=== PATIENT | male | born 1965 | race Caucasian/White ===

== ENCOUNTER 2020-04-28 01:04 | Outpatient (CLI) | payer BC, SELFPAY ==
[2020-04-28 19:20] LABS: SARS-CoV-2 RNA PCR Negative
== END 2020-04-28 01:05 | disposition home or self-care (01) ==
LOC: ANHCOVIDDT 01:04
PROVIDERS: PCP Family Medicine; Visit Provider Internal Medicine Gastroenterology
DX: Z01.812 Encounter for preprocedural laboratory examination (principal); Z11.59 Encounter for screening for other viral diseases
CPT/HCPCS: 87635; C9803; U0003

== ENCOUNTER 2020-04-30 02:29 | Day surgery (SDC) | payer BC, SELFPAY ==
[2020-04-23 16:01] VITALS: BMI 22.8
[2020-04-30 06:50] VITALS: BP 97/68; PULSE 87; RESP 16; TEMP 36.4; O2SAT 98; BMI 22.8
--- NOTE | 2020-04-30 06:53 | WPDANESEPPF ---
Anes - Initial Pre Proc Eval Procedure: Operation Date: 04/30/20 08:00 Proposed Procedures p Screening Colonoscopy - Mayo Gorman MD Date/Time: 04/30/20 06:53 Surgeon: Mayo Gorman MD Pre Op Diagnosis: Neoplasm Screening Patient Data Age: 54 Gender: M Height: 1.73 m Weight: 68.1 kg Last Vital Signs Temp 36.4 C L 04/30/20 06:50 Pulse 87 04/30/20 06:50 Resp 16 04/30/20 06:50 BP 97/68 L 04/30/20 06:50 Pulse Ox 98 04/30/20 06:50 Allergies Allergy/AdvReac Type Severity Reaction Status Date / Time Penicillins Allergy Severe Anaphylaxis Verified 04/23/20 16:01 Sulfa (Sulfonamide Allergy Severe ANAPHYLAXIS Unverified 04/23/20 16:01 Antibiotics) sulfanilamide Allergy Severe Anaphylaxis Verified 04/23/20 16:01 BEE STINGS Allergy Intermediate Swelling Uncoded 04/23/20 16:01 Home Medications Medication Instructions Recorded Confirmed Type amlodipine-benazepril 1 cap PO DAILY 04/23/20 04/30/20 History aspirin [Aspir-81] 81 mg PO DAILY 04/23/20 04/30/20 History insulin degludec [Tresiba 18 unit SUBCUT DIRECTED 04/23/20 04/30/20 History FlexTouch U-200] levothyroxine 75 mcg PO DAILY 04/23/20 04/30/20 History pravastatin 20 mg PO DAILY 04/23/20 04/30/20 History Patient hx anesthesia problems: none Family hx anesthesia problems: none [facility] Past Medical History Medical History (Updated 04/30/20 @ 06:54 by Mina Leiva MD) Arthritis Diabetes Gastroesophageal reflux disease HTN (hypertension) Hypercholesterolemia Hypothyroidism Family History Family History (Updated 01/05/13 @ 09:39 by DOCTOR UNKNOWN) Other Depression Diabetes mellitus Family history of coronary artery disease Family history of migraine headaches Family history of thyroid disease Hypertension Social History Social History Smoking status: Never smoker Alcohol intake: current Anes - Eval Final PreProcedure Day of Procedure 04/30/20 06:53 Patient weight: normal Heart: regular rate and rhythm Lungs: clear to auscultation and normal air movement Airway: Mallampati scale class II Neurological: alert and oriented Last oral intake: >/= 8 hours ASA classification: III Emergent: no Anesthetic plan: proceed Anesthesia type and monitoring: general GIVS Informed Consent: The patient's anesthetic plan and its attendant risks and benefits were discussed with the patient/family/POA. Questions were solicited and answers provided to the satisfaction of the patient/family/POA.
[2020-04-30] MEDS: LACTATED RINGERS 1,000 ML 150 ML IV CONT (06:59)
[2020-04-30 07:15] LABS: Glucose Point of Care 204 (65-105)
--- NOTE | 2020-04-30 07:56 | WPDGICN ---
Assessment and Plan Assessment and plan (1) Encounter for screening for colorectal malignant neoplasm: Code(s): Z12.11 - Encounter for screening for malignant neoplasm of colon; Z12.12 - Encounter for screening for malignant neoplasm of rectum Status: Acute Assessment and Plan: Plan is for screening colonoscopy. Further recommendations will be given after endoscopy. Patient has never had an endoscopy before. (2) Constipation: Code(s): K59.00 - Constipation, unspecified Status: Acute Assessment and Plan: Because of patient's constipation would advise MiraLax 17 g p.o. daily as needed for his constipation. He is encouraged to remain hydrated. He had exercise may be of some benefit. (3) Diabetes: Code(s): E11.9 - Type 2 diabetes mellitus without complications Status: Acute GI Consult Note Consult date/time: 04/30/20 07:56 HPI: Rayo Hilario is a 54 year old male Seen in evaluation at the request of Dr. Lane Valle. Patient presents for neoplasia screening colonoscopy. Patient's current weight is normally states his appetite is diminished somewhat. He recently lost 90 lb with intentional weight loss and diet and exercise. He does report occasional constipation. He attributes this to his new diet. He denies any bleeding. He denies abdominal pain. Family history is noncontributory. Review of Systems Review of Systems: All systems reviewed & are unremarkable except as noted in HPI and below PMFSH Past Medical History Medical History Arthritis Diabetes Gastroesophageal reflux disease HTN (hypertension) Hypercholesterolemia Hypothyroidism Family History Family History Other Depression Diabetes mellitus Family history of coronary artery disease Family history of migraine headaches Family history of thyroid disease Hypertension Social History Social History Smoking status: Never smoker Alcohol intake: current Meds Home Medications and Allergies Home Medications Medication Instructions Recorded Confirmed Type amlodipine-benazepril 1 cap PO DAILY 04/23/20 04/30/20 History aspirin [Aspir-81] 81 mg PO DAILY 04/23/20 04/30/20 History insulin degludec [Tresiba 18 unit SUBCUT DIRECTED 04/23/20 04/30/20 History FlexTouch U-200] levothyroxine 75 mcg PO DAILY 04/23/20 04/30/20 History pravastatin 20 mg PO DAILY 04/23/20 04/30/20 History Allergies Allergy/AdvReac Type Severity Reaction Status Date / Time Penicillins Allergy Severe Anaphylaxis Verified 04/23/20 16:01 Sulfa (Sulfonamide Allergy Severe ANAPHYLAXIS Unverified 04/23/20 16:01 Antibiotics) sulfanilamide Allergy Severe Anaphylaxis Verified 04/23/20 16:01 BEE STINGS Allergy Intermediate Swelling Uncoded 04/23/20 16:01 Vital Signs Vital Signs - 24 hr 04/30/20 06:50 Temperature 97.5 F L Pulse Rate 87 Respiratory Rate 16 Blood Pressure 97/68 L Pulse Oximetry 98 Exam Narrative: Exam Narrative: Physical exam reveals patient to be alert. Vital signs stable. HEENT exam unremarkable. Lungs are clear to auscultation and percussion. Heart is without murmur or extra sounds. Abdominal exam bowel sounds are present soft nontender with no hepatosplenomegaly. Digital external rectal exam normal.
[2020-04-30 09:46] VITALS: BP 99/67; PULSE 66; RESP 18; O2SAT 99
[2020-04-30 09:56] VITALS: BP 137/88; PULSE 75; RESP 15; O2SAT 100
[2020-04-30 10:06] VITALS: BP 138/91; PULSE 72; RESP 19; O2SAT 100
== END 2020-04-30 10:26 | disposition home or self-care (01) ==
PROVIDERS: PCP Physician Assistant; Visit Provider Internal Medicine Gastroenterology
PROC: 0DJD8ZZ Inspection of Lower Intestinal Tract, Via Natural or Artificial Opening Endoscopic (ICD-10-PCS; CPT 45378; principal; 2020-04-30 08:00)
DX: Z12.11 Encounter for screening for malignant neoplasm of colon (principal); K64.8 Other hemorrhoids; K59.00 Constipation, unspecified; E11.9 Type 2 diabetes mellitus without complications; I10 Essential (primary) hypertension; E78.00 Pure hypercholesterolemia, unspecified; K21.9 Gastro-esophageal reflux disease without esophagitis; E03.9 Hypothyroidism, unspecified; Z79.4 Long term (current) use of insulin; Z79.82 Long term (current) use of aspirin
CPT/HCPCS: 45378; J2704; J7120

== ENCOUNTER 2020-07-15 04:16 | Observation (INO) | payer BC, SELFPAY ==
[2020-07-15] VITALS (18 sets, daily range): BP systolic 132–199; BP diastolic 81–108; PULSE 70–87; RESP 15–22; TEMP 36.2–36.8; O2SAT 96–100; BMI 23.1
--- NOTE | ~2020-07-15 | MR_ITS ---
EXAMINATION: MR brain/brain stem wo/w con EXAM DATE: 07/15/2020 14:17 INDICATION: Left-sided hearing loss, dizziness. TECHNIQUE: Multi-sequential, multiplanar MR images of the brain, brainstem, internal auditory canals were obtained without contrast. Whole brain sagittal T1, axial diffusion, gradient echo (T2*), T1, T 2, FLAIR sequences obtained. High resolution coronal 3-D FIESTA, coronal T1 FSE, axial T1 FSPGR of t he internal auditory canals. Patient was then injected with 13 cc Multihance contrast intravenously. Postcontrast axial and coronal T1 weighted whole brain, axial and coronal high resolution T1 IAC seq uences obtained. There is no prior study for comparison. FINDINGS: No evidence of mastoid or middle ear opacification. The 7th/8th cranial nerve complexes a re symmetric, normal in course and caliber. No cerebellopontine angle masses. Posterior fossa unrem arkable. . There are no areas of restricted diffusion to suggest acute infarction. There is no acute hemorrha ge seen on the T2*, a hemosiderin sensitive sequence. No intraparenchymal brain mass. The ventricles are normal in size. There are no extra-axial collections. Flow voids are seen in the cerebral paul patsy on the T2-weighted sequences consistent with their expected patency. The orbits are unremarkabl e. Soft tissue is unremarkable. IMPRESSION: 1. Unremarkable brain MRI examination. Reviewed, dictated and finalized at location B.
--- NOTE | ~2020-07-15 | XR_ITS ---
XR chest 1V DATE: 07/15/2020 04:54 INDICATION: Stroke symptoms TECHNIQUE: AP chest COMPARISON: None FINDINGS: Normal heart size. No hilar or mediastinal enlargement. No pulmonary infiltrate or consolid ation, pleural effusion or pulmonary vascular congestion or pneumothorax. IMPRESSION: No active cardiopulmonary disease Reviewed, dictated and finalized at location A.
--- NOTE | ~2020-07-15 | CT_ITS ---
EXAMINATION: CT brain wo con DATE: 07/15/2020 04:57 INDICATION: Dizziness, left hearing loss, left-sided tingling. TECHNIQUE: Computed tomography (CT) of the head was performed without intravenous contrast. The mA wa s adjusted according to patient size. Iterative reconstruction technique was employed. Exam dose: 60 5.33 mGy-cm total exam DLP. COMPARISON: None FINDINGS: No intracranial mass lesion or hemorrhage or cerebrovascular accident is evident. No midlin e shift or mass effects. Normal ventricular size. There is no subdural or epidural hematoma. Included paranasal sinuses are unremarkable. The mastoid air cells are normally aerated. No fracture or bone destruction of the cranial vault. IMPRESSION: No significant abnormality Reviewed, dictated and finalized at [facility]. Reviewed, dictated and finalized at [facility]. IMPRESSION: No significant abnormality
--- NOTE | ~2020-07-15 | CT_ITS ---
EXAMINATION: CTA BRAIN/CAROTID DATE: 07/15/2020 16:07 INDICATION: Stroke with left-sided hearing loss and dizziness TECHNIQUE: Computed tomographic angiography (CTA) of the head and neck was performed with 100 mL Omni paque-350 intravenous contrast. Multiplanar reconstructions and maximum intensity projection 3D-recon structions of the carotid arteries and of the intracranial arteries were created by the technologist on a separate workstation. Automated exposure control and iterative reconstruction technique were emp loyed.The dose-length product was 1133.63 mGy-cm. COMPARISON: None. FINDINGS: Carotid arteries: There is mild atherosclerotic plaque with 0% stenosis of both the left and right carotid bulbs relati ve to normal distal artery lumen diameter (NASCET criteria). Mild atherosclerotic calcification with <50% stenosis on the right cervical vertebral artery. Visualized upper lungs are clear. Soft tissues of the neck and visualized mediastinum are unremarkable. Degenerative disc disease with moderate disc height loss and posterior disc bulge resulting in mild central canal stenosis at C6-C7. To moderate left and severe right facet osteoarthritis at C6-C7. Intracranial arteries Atherosclerotic calcification with near occlusion stenosis along the petrous portion of the right int ernal carotid artery. Additional calcified atherosclerotic plaque with significantly <50% stenosis at the bilateral carotid siphons, minimal on the left. There is no hemodynamically significant stenosis in the vertebral and basilar arteries. Vertebral arteries are codominant. There are no aneurysms naresh ntified. Both A1 and P1 segments are patent. Are also patent bilateral posterior to indicating arter ies. Cerebral arterial arborization appears symmetric. No abnormally enhancing brain lesions. IMPRESSION: 1. 0% stenosis of the left and right carotid bulbs relative to normal distal artery lumen diameter (N ASCET criteria). 2. Isolated calcified atherosclerotic plaque along the mid petrous portion of the right internal doss tid artery with a near occlusion stenosis. Otherwise unremarkable cerebral angiogram. Reviewed, dictated and finalized at [facility]. IMPRESSION: 1. 0% stenosis of the left and right carotid bulbs relative to normal distal ar bartolo lumen diameter (NASCET criteria). 2. Isolated calcified atherosclerotic plaque along the mid petrous portion of t he right internal carotid artery with a near occlusion stenosis. Otherwise unre markable cerebral angiogram.
--- NOTE | 2020-07-15 04:40 | ECG_ITS ---
Measurements Intervals Switchback Rate: 78 P: 64 FL: 188 QRS: 7 QRSD: 85 T: 56 QT: 359 QTc: 409 Interpretive Statements SINUS RHYTHM POSSIBLE LEFT ATRIAL ENLARGEMENT BORDERLINE ECG Electronically Signed On 07-15-2020 6:43:04 CDT by Steven Pardo D.O.
--- NOTE | 2020-07-15 04:56 | PC.NURSE ---
Pt reports his BG is 271
[2020-07-15 05:06] LABS: Glucose Point of Care 270 (65-105)
[2020-07-15 05:25] LABS: Basophils Absolute Auto 0.1 K/mm3 (0.0-0.1); Eosinophils Absolute Auto 0.4 K/mm3 (0-0.3); Eosinophils Percent Auto 5.1 % (0-4.4); Hematocrit 43.7 % (42.0-52.0); Hemoglobin 15.5 g/dL (14.0-18.0); Immature Granulocyte Absolute 0.05 K/mm3 (0.00-0.031); Immature Granulocyte Percent A 0.7 % (0-0.5); Lymphocytes Absolute Auto 1.34 K/mm3 (0.9-3.2); Lymphocytes Percent Auto 18.4 % (18.3-44.2); Mean Corpuscular HGB Conc 35.5 g/dl (32-36); Mean Corpuscular Hemoglobin 30.3 pg (26-34); Mean Corpuscular Volume 85.4 fl (80-100); Mean Platelet Volume 9.6 fl (7.4-10.4); Monocytes Absolute Auto 0.7 K/mm3 (0.1-0.6); Monocytes Percent Auto 9.8 % (2.6-8.5); Neutrophils Absolute Auto 4.7 K/mm3 (1.3-6.7); Platelet Count Result 294 k/mm3 (150-375); Red Blood Count 5.12 M/mm3 (4.6-6.20); Red Cell Distribution Width 11.8 % (11.5-14.5); White Blood Count 7.3 K/mm3 (4.5-10.0)
--- NOTE | 2020-07-15 05:27 | ED.NEUROSD ---
HPI - Neuro Symptoms/Deficit General Chief Complaint: Neuro Symptoms/Deficit Stated Complaint: my ear is muted . Time Seen by Provider: 07/15/20 04:20 History of Present Illness HPI Narrative: Patient is a 54-year-old male who presents the ER with left-sided hearing loss. Patient reports at 1 AM he started hearing ringing in his ear. Over the course of 2 hours it developed into full hearing loss with continued persistent loud ringing in that ear. He also developed tingling over the parietal region of his scalp on that left side and has also developed what he feels like his dizziness. Dizziness is not spinning it is an off-balance feeling. Reports he is unsteady at home. No additional weakness or numbness noted. No previous strokes. Patient does have chronic hearing loss on the left side that he wears a hearing aid for but this is markedly different. Related Data Home Medications Medication Instructions Recorded Confirmed amlodipine-benazepril 1 cap PO DAILY 04/23/20 04/30/20 aspirin [Aspir-81] 81 mg PO DAILY 04/23/20 04/30/20 insulin degludec [Tresiba 18 unit SUBCUT DIRECTED 04/23/20 04/30/20 FlexTouch U-200] levothyroxine 75 mcg PO DAILY 04/23/20 04/30/20 pravastatin 20 mg PO DAILY 04/23/20 04/30/20 Allergies Allergy/AdvReac Type Severity Reaction Status Date / Time Penicillins Allergy Severe Anaphylaxis Verified 07/15/20 04:20 Sulfa (Sulfonamide Allergy Severe ANAPHYLAXIS Verified 07/15/20 04:20 Antibiotics) sulfanilamide Allergy Severe Anaphylaxis Verified 07/15/20 04:20 BEE STINGS Allergy Intermediate Swelling Uncoded 07/15/20 04:20 Review of Systems Review of Systems: All systems reviewed & are unremarkable except as noted in HPI and below Constitutional: Constitutional: Denies chills, Denies fever(s) and Denies weakness Eyes: Eyes: Denies photophobia ENT: Denies nasal congestion and Denies sore throat Comments: Tinnitus in the left ear as well as hearing loss Cardiovascular: Cardiovascular: Denies chest pain and Denies radiating jaw, neck or arm pain Gastrointestinal: Gastrointestinal: Denies abdominal pain, Denies diarrhea, Denies nausea and Denies vomiting Neurologic: Reports dizziness, Denies headache(s), Denies focal weakness and Reports numbness PMFSH Social History Social History Smoking status: Never smoker Alcohol intake: current Exam Narrative: Exam Narrative: GENERAL: Well-appearing, well-nourished, and in no acute distress. HEAD: Normocephalic, atraumatic. EYES: PERRL and EOMI. ENT: Mucous membranes moist. TMs normal bilaterally with ear canals free of cerumen. Patient cannot hear on the left side. Feels as though his left ear is numb however sensation is intact. NECK: Supple. CHEST: Clear to auscultation. No respiratory distress. HEART: Regular rate and rhythm. Normal peripheral pulses. ABDOMEN: Soft, nontender, nondistended. EXTREMITIES: Normal range of motion. No edema. SKIN: Warm, dry, no rash. NEURO: Left-sided hearing loss. No sharp or soft touch deficit noted. No upper or lower extremity drift. Dmia-ud-isab normal. Finger-nose testing normal. Negative Romberg. Patient is able to ambulate a straight line walking and on his tiptoes without falling to one side. No facial droop, dysarthria, or expressive aphasia. Alert and oriented x3. Course Reevaluation(s) Reevaluation #1: Discussed case with Dr. Arreguin with [facility] stroke team. No TPA intervention recommended but does recommend w/u with MRI and carotid dopplers. Will plan admission here. Date: 07/15/20 Time: 05:30 Reevaluation #2: Accepted to hospital service. Will have ENT consulted as well. Date: 07/15/20 Time: 06:00 Vital Signs Vital signs: Vital Signs Temperature 98.0 F 07/15/20 04:21 Pulse Rate 87 07/15/20 04:21 Respiratory Rate 15 07/15/20 04:21 Blood Pressure 132/94 H 07/15/20 04:21 Pulse Oximetry 100 07/15/20 04:21 Temperature
[2020-07-15 05:33] LABS: INR 0.9; Prothrombin Time 12.1 Seconds (11.1-14.7)
[2020-07-15 05:38] LABS: Anion Gap 4 mmol/L (8-16); Blood Urea Nitrogen 12 mg/dL (9-20); Calcium 8.7 mg/dL (8.4-10.2); Carbon Dioxide 34 mmol/L (22-30); Chloride 95 mmol/L (98-107); Estimated Glomerular Filt Rate > 60; Glucose 277 mg/dL (75-110); Potassium 4.3 mmol/L (3.4-5.0); Sodium 133 mmol/L (137-145)
[2020-07-15 05:50] LABS: Troponin I < 0.012 ng/mL (0.000-0.034)
--- NOTE | 2020-07-15 06:41 | ADMGEN ---
This patient, Rayo Hilario, was admitted to [facility] Surg Room 315-01. Patient/family oriented to hospital policies and general routines including ID bracelet, bed and alarms, visiting hours, pain management, procedures, bathroom and other care routines, personal items, smoking policy, room service/diet, and visiting hours. Valuables list has been completed. Information on how to activate the Rapid Response Team has been discussed. Patient/Family are encouraged to report perceived risks to care and to ask questions if they do not understand what they are told or what they should do.
[2020-07-15] MEDS: PROMETHAZINE HCL 25 MG/ML AMPUL 12.5 MG IV PUSH (07:50)
[2020-07-15 08:57] LABS: Basophils Absolute Auto 0.1 K/mm3 (0.0-0.1); Eosinophils Absolute Auto 0.3 K/mm3 (0-0.3); Eosinophils Percent Auto 4.2 % (0-4.4); Hematocrit 41.3 % (42.0-52.0); Hemoglobin 14.6 g/dL (14.0-18.0); Immature Granulocyte Absolute 0.03 K/mm3 (0.00-0.031); Immature Granulocyte Percent A 0.4 % (0-0.5); Lymphocytes Absolute Auto 1.25 K/mm3 (0.9-3.2); Mean Corpuscular HGB Conc 35.4 g/dl (32-36); Mean Corpuscular Hemoglobin 30.4 pg (26-34); Mean Corpuscular Volume 85.9 fl (80-100); Mean Platelet Volume 9.1 fl (7.4-10.4); Monocytes Absolute Auto 0.6 K/mm3 (0.1-0.6); Monocytes Percent Auto 8.2 % (2.6-8.5); Neutrophils Absolute Auto 4.7 K/mm3 (1.3-6.7); Neutrophils Percent Auto 68.2 % (45.5-73.1); Platelet Count Result 234 k/mm3 (150-375); Red Blood Count 4.81 M/mm3 (4.6-6.20); Red Cell Distribution Width 11.9 % (11.5-14.5)
[2020-07-15] MEDS: PRAVASTATIN SODIUM 20 MG TABLET PO (09:10)
[2020-07-15] MEDS: lisinopriL 20 MG TABLET PO (09:10)
[2020-07-15] MEDS: LEVOTHYROXINE SODIUM 75 MCG TABLET PO (09:10)
--- NOTE | 2020-07-15 13:37 | PHAR ---
home med verified tresiba 200 units/ml 18 units daily
--- NOTE | 2020-07-15 15:10 | WPDNEURCNPN ---
Assessment and Plan Assessment and plan (1) SNHL (sensory-neural hearing loss), unilateral: Code(s): H90.5 - Unspecified sensorineural hearing loss Status: Acute (2) Dizziness: Code(s): R42 - Dizziness and giddiness Status: Acute (3) Diabetes: Code(s): E11.9 - Type 2 diabetes mellitus without complications Status: Acute (4) Hypothyroidism: Code(s): E03.9 - Hypothyroidism, unspecified Status: Acute (5) Arthritis: Code(s): M19.90 - Unspecified osteoarthritis, unspecified site Status: Acute (6) Gastroesophageal reflux disease: Code(s): K21.9 - Gastro-esophageal reflux disease without esophagitis Status: Acute (7) Hypercholesterolemia: Code(s): E78.00 - Pure hypercholesterolemia, unspecified Status: Acute (8) HTN (hypertension): Code(s): I10 - Essential (primary) hypertension Status: Acute (9) Vertigo: Code(s): R42 - Dizziness and giddiness Status: Acute Additional Plan brain MRI and carotid Dopplers are pending I would recommend doing a CTA of the brain and the carotid and continue the aspirin and if the MRI shows any evidence of stroke then I will add Plavix to it he needs to be monitored for any evidence of cardiac dysrhythmia Consult date: 07/15/20 Time Seen: 14:30 HPI: Rayo Hilario is a 54 year old male he is admitted because of sudden onset of vertigo and fullness in the ear to a point of being painful with negative year examination in the emergency room without any fever chills sore throat chest pain shortness of breath he never experience symptoms like this before and he has never been diagnosed to have had a stroke however he has been taking aspirin since he was diagnosed with diabetes mellitus and also has high blood pressure which was significantly high which was in the emergency room at the time of examination he continues to have a hearing loss with the left ear and a fullness in the left ear which is rather unusual for the typical vertigo he denies any double vision blurriness of the vision trouble swallowing paresthesias or the focal weakness the emergency room physician was in touch with the [facility] stroke room and they did not feel that the tPA was indicated and recommended however the MRI and carotid Doppler studies which have been ordered Review of Systems Review of Systems: All systems reviewed & are unremarkable except as noted in HPI and below PMFSH Past Medical History Medical History Arthritis Diabetes Gastroesophageal reflux disease HTN (hypertension) Hypercholesterolemia Hypothyroidism Family History Family History Father Depression Diabetes mellitus Family history of coronary artery disease Family history of thyroid disease Sibling Family history of migraine headaches Hypertension Sibling No problems noted. Mother Hypertension Social History Social History Years smoked: 15 Smoking status: Former smoker Alcohol intake: current Drinks per week: 3 Substance use: never Gender identity (if verbalized by the patient): Male Spiritual care concerns: No Meds Home Medications and Allergies Home Medications Medication Instructions Recorded Confirmed Type aspirin [Aspir-81] 81 mg PO DAILY 04/23/20 07/15/20 History insulin degludec [Tresiba 18 unit SUBCUT DIRECTED 04/23/20 07/15/20 History FlexTouch U-200] levothyroxine 75 mcg PO DAILY 04/23/20 07/15/20 History pravastatin 20 mg PO DAILY 04/23/20 07/15/20 History benazepril 20 mg PO DAILY 07/15/20 07/15/20 History Allergies Allergy/AdvReac Type Severity Reaction Status Date / Time Penicillins Allergy Severe Anaphylaxis Verified 07/15/20 04:20 Sulfa (Sulfonamide Allergy Severe ANAPHYLAXIS Verified 07/15/20 04:20 Antibio
--- NOTE | 2020-07-15 16:56 | WPDCN ---
Assessment and Plan Assessment and plan (1) Sudden-onset sensorineural hearing loss: Code(s): H91.20 - Sudden idiopathic hearing loss, unspecified ear Status: Acute Assessment and Plan: It is my impression that the patient has suffered from a sudden sensorineural hearing loss of his left ear vs stroke of the left labrynthine artery, vs a Meneirre's variant. I recommend initiating 60mg daily of prednisone for 10 days and obtaining an audiogram as soon as possible. Please have the patient follow up with me following the audiogram. If stroke is suspected recommend consulting neurology. Mirza Herrera MD HPI Data of Consult Date/Time: 07/15/20 16:56 Requesting Physician: Isabel Luevano DO Primary Care Provider: CATHIE Luis Consult Narrative Narrative: Rayo Hilario is a 54 year old male who awoke yesterday evening with a sudden hearing loss of the left ear. He associates vertigo (room spinning) as well as severe high frequency tinnitus. No other associated symptoms, no provoking nor palliative factors. MRI per hospitalist negative. No previous otologic history. Review of Systems Constitutional: Constitutional: Denies fatigue, Denies fever(s) and Denies lethargy Eyes: Eyes: Denies blurry vision and Denies change in vision ENT: Reports as per HPI Cardiovascular: Cardiovascular: Denies chest pain Respiratory: Respiratory: Denies cough Endocrine: Endocrine: Denies fatigue Hematologic/Lymphatic: Hematologic/Lymphatic: Denies easy bleeding, Denies easy bruising and Denies lymphadenopathy Allergic/Immunologic: Allergic/Immunologic: Denies seasonal rhinorrhea PMFSH Past Medical History Medical History Arthritis Diabetes Gastroesophageal reflux disease HTN (hypertension) Hypercholesterolemia Hypothyroidism Family History Family History Father Depression Diabetes mellitus Family history of coronary artery disease Family history of thyroid disease Sibling Family history of migraine headaches Hypertension Sibling No problems noted. Mother Hypertension Social History Social History Years smoked: 15 Smoking status: Former smoker Alcohol intake: current Drinks per week: 3 Substance use: never Gender identity (if verbalized by the patient): Male Spiritual care concerns: No Meds Home Medications and Allergies Home Medications Medication Instructions Recorded Confirmed Type aspirin [Aspir-81] 81 mg PO DAILY 04/23/20 07/15/20 History insulin degludec [Tresiba 18 unit SUBCUT DIRECTED 04/23/20 07/15/20 History FlexTouch U-200] levothyroxine 75 mcg PO DAILY 04/23/20 07/15/20 History pravastatin 20 mg PO DAILY 04/23/20 07/15/20 History benazepril 20 mg PO DAILY 07/15/20 07/15/20 History Allergies Allergy/AdvReac Type Severity Reaction Status Date / Time Penicillins Allergy Severe Anaphylaxis Verified 07/15/20 04:20 Sulfa (Sulfonamide Allergy Severe ANAPHYLAXIS Verified 07/15/20 04:20 Antibiotics) sulfanilamide Allergy Severe Anaphylaxis Verified 07/15/20 04:20 BEE STINGS Allergy Intermediate Swelling Uncoded 07/15/20 04:20 Vital Signs Vital Signs - 24 hr 07/15/20 04:21 07/15/20 04:49 07/15/20 05:04 Temperature 36.7 C Pulse Rate 87 81 79 Respiratory Rate 15 22 H Blood Pressure 132/94 H 184/106 H Pulse Oximetry 100 100 99 07/15/20 05:05 07/15/20 05:14 07/15/20 05:15 Temperature Pulse Rate 79 79 Respiratory Rate 20 18 Blood Pressure 155/85 H 155/85 H Pulse Oximetry 98 99 07/15/20 05:29 07/15/20 05:32 07/15/20 06:34 Temperature Pulse Rate 78 80 80 Respiratory Rate 16 20 17 Blood Pressure 155/85 H 166/100 H 159/92 H Pulse Oximetry 98 98 96 07/15/20 06:40 07/15/20 07:50 07/15/20 08:00 Temperature 36.2 C L Pulse Rate 78 71 Respiratory Rate 18
--- NOTE | 2020-07-15 17:34 | PM.IMHP ---
H&P: HPI History of Present Illness Date/Time: 07/15/20 17:34 Chief complaint: Stroke symptoms/hearing loss/dizziness Narrative: Rayo Hilario is a 54 year old male with history of type 1 diabetes yesterday patient woke with sudden onset of tinnitus, fullness in the left ear and sudden hearing loss in the ear, he complains of being dizzy the room is spinning, patient denies any associated symptoms runny nose cough congestion nausea or vomiting, patient had a CT scan of the head is negative for any acute injury similarly patient had MRI of the brain is also negative, patient was seen by neurologist and ordered CTA of the brain which showed 1. 0% stenosis of the left and right carotid bulbs relative to normal distal artery lumen diameter (NASCET criteria). 2. Isolated calcified atherosclerotic plaque along the mid petrous portion of the right internal carotid artery with a near occlusion stenosis. I discussed these results with neurologist he does not suspect hearing loss due to the total occlusion of right internal carotid artery however will start the patient on Plavix and continue aspirin to further evaluate will do cardiac echo. patient was also seen by ENT he suspect patient suffered from a sudden sensorineural hearing loss of his left ear and has started the patient on prednisone 60 mg for 10 days, I have started the patient low-dose of meclizine to help with his dizziness, will monitor his blood sugar, once clinically stable will have a PT OT evaluate the patient before discharging him home. Review of Systems Review of Systems: All systems reviewed & are unremarkable except as noted in HPI and below PMFSH Past Medical History Medical History Arthritis Diabetes Gastroesophageal reflux disease HTN (hypertension) Hypercholesterolemia Hypothyroidism Family History Family History Father Depression Diabetes mellitus Family history of coronary artery disease Family history of thyroid disease Sibling Family history of migraine headaches Hypertension Sibling No problems noted. Mother Hypertension Social History Social History Years smoked: 15 Smoking status: Former smoker Alcohol intake: current Drinks per week: 3 Substance use: never Gender identity (if verbalized by the patient): Male Spiritual care concerns: No Meds Home Medications and Allergies Home Medications Medication Instructions Recorded Confirmed Type aspirin [Aspir-81] 81 mg PO DAILY 04/23/20 07/15/20 History insulin degludec [Tresiba 18 unit SUBCUT DIRECTED 04/23/20 07/15/20 History FlexTouch U-200] levothyroxine 75 mcg PO DAILY 04/23/20 07/15/20 History pravastatin 20 mg PO DAILY 04/23/20 07/15/20 History benazepril 20 mg PO DAILY 07/15/20 07/15/20 History Allergies Allergy/AdvReac Type Severity Reaction Status Date / Time Penicillins Allergy Severe Anaphylaxis Verified 07/15/20 04:20 Sulfa (Sulfonamide Allergy Severe ANAPHYLAXIS Verified 07/15/20 04:20 Antibiotics) sulfanilamide Allergy Severe Anaphylaxis Verified 07/15/20 04:20 bee venom protein (honey bee) Allergy Intermediate Swelling Verified 07/15/20 17:31 BEE STINGS Allergy Intermediate Swelling Uncoded 07/15/20 04:20 Vital Signs Vital Signs - 24 hr 07/15/20 04:21 07/15/20 04:49 07/15/20 05:04 Temperature 98.0 F Pulse Rate 87 81 79 Respiratory Rate 15 22 H Blood Pressure 132/94 H 184/106 H Pulse Oximetry 100 100 99 07/15/20 05:05 07/15/20 05:14 07/15/20 05:15 Temperature Pulse Rate 79 79 Respiratory Rate 20 18 Blood Pressure 155/85 H 155/85 H Pulse Oximetry 98 99 07/15/20 05:29 07/15/20 05:32 07/15/20 06:34 Temperature Pulse Rate 78 80 80 Respiratory Rate 16 20 17 Blood Pressure 155/85 H 166/100 H 159/92 H Pulse Oximetry 98 98 96 07/15/20 06:40 07/15/20 0
[2020-07-15] MEDS: CLOPIDOGREL BISULFATE 75 MG TABLET PO (18:05)
[2020-07-15] MEDS: predniSONE 20 MG TABLET 60 MG PO (18:05)
[2020-07-15] MEDS: MECLIZINE HCL 6.25 MG TABLET PO (18:06)
[2020-07-15 18:13] LABS: Magnesium 2.1 mg/dL (1.6-2.3)
[2020-07-15] MEDS: INSULIN ASPART (*BKC) 100 UNITS/ML SUB-Q (23:13)
[2020-07-16] VITALS: PULSE 93
--- NOTE | 2020-07-16 | ECHO_ITS ---
Patient Info Name: Rayo Hilario Age: 54 years : 1965 Gender: Male Ht: 68 in Wt: 152 lbs BSA: 1.82 m2 HR: 83 bpm BP: 124 / 83 mmHg Heart Rhythm: Sinus Rhythm Technical Quality: Good Exam Date: 07/16/2020 2:14 PM Exam Location: [facility] Patient Status: Outpatient Admit Date: 07/15/2020 Staff Ordering Physician: Yasmani Campa MD Family Protection Specialist: Pieter Metzger RDCS, RT Attending Provider: Isabel Luevano DO Referring Physician: Katheryn CELESTE; Exam Type: CA echo doppler color flow Study Info Indications G45.8 - Other transient cerebral ischemic attacks and related syndromes Complete two-dimensional, color flow and Doppler transthoracic echocardiogram is performed. Summary 1. Complete two-dimensional, color flow and Doppler transthoracic echocardiogram is performed. 2. Left ventricular chamber size, wall thickness, systolic and diastolic function are normal with no regional wall motion abnormalities with an estimated ejection fraction of 60-65%. 3. The mitral valve has thickened leaflets, with mild prolapse of both valves and no mitral regurgitation. 4. The atrial septum is grossly normal. No bubble study performed. 5. Normal sinus rhythm. Left Ventricle Left ventricular chamber dimension is normal. Left ventricular systolic function is normal, estimated at Empty. There is no increased left ventricular wall thickness. Left ventricular septal wall motion is normal. The left ventricular diastolic function is normal. Left ventricular chamber size, wall thickness, systolic and diastolic function are normal with no regional wall motion abnormalities with an estimated ejection fraction of 60-65%. Right Ventricle Right ventricular chamber dimension is normal. Right ventricular systolic function is normal. Left Atria Left atrial chamber dimension is normal. Right Atria Right atrial chamber dimension is normal. Aortic Valve The aortic valve is trileaflet. There is no aortic valve sclerosis. There is no aortic valve stenosis. There is no aortic valve regurgitation. Pulmonic Valve The pulmonic valve is normal. There is no pulmonic valve stenosis. There is no pulmonic regurgitation. Mitral Valve The mitral valve has thickened leaflets, with mild prolapse of both valves and no mitral regurgitation. There is no mitral valve stenosis. There is no mitral valve regurgitation. Tricuspid Valve The tricuspid valve leaflets are normal. There is no significant tricuspid valve stenosis. There is no tricuspid valve regurgitation. No pulmonary hypertension, estimated pulmonary arterial systolic pressure is Empty. Pericardium/Pleural The pericardium appears normal. There is no pericardial effusion. Inferior Vena Cava Normal inferior vena cava with >50% collapse upon inspiration consistent with Empty right atrial pressure, Empty. Aorta The aortic root size at the sinus of Valsalva is normal. The prox ascending aorta size is normal. Left Ventricular Outflow Tract Name Value Normal LVOT 2D LVOT Diameter 2.3 cm LVOT Doppler LVOT Peak Gradient 4 mmHg
[2020-07-16 01:13] LABS: Glucose Point of Care 380 (65-105)
[2020-07-16 03:24] LABS: Glucose Point of Care 298 (65-105)
[2020-07-16 04:00] VITALS: PULSE 88
[2020-07-16] MEDS: LEVOTHYROXINE SODIUM 75 MCG TABLET PO (05:33)
[2020-07-16 06:00] VITALS: BP 124/83; PULSE 87; RESP 18; TEMP 36.8; O2SAT 100
[2020-07-16 06:28] LABS: Hematocrit 44.3 % (42.0-52.0); Hemoglobin 15.6 g/dL (14.0-18.0); Mean Corpuscular HGB Conc 35.2 g/dl (32-36); Mean Corpuscular Hemoglobin 29.7 pg (26-34); Mean Corpuscular Volume 84.4 fl (80-100); Mean Platelet Volume 9.2 fl (7.4-10.4); Platelet Count Result 287 k/mm3 (150-375); Red Blood Count 5.25 M/mm3 (4.6-6.20); Red Cell Distribution Width 11.6 % (11.5-14.5); White Blood Count 9.6 K/mm3 (4.5-10.0)
[2020-07-16 06:39] LABS: Anion Gap 8 mmol/L (8-16); Blood Urea Nitrogen 15 mg/dL (9-20); Carbon Dioxide 30 mmol/L (22-30); Chloride 95 mmol/L (98-107); Estimated CRCL calculation 139 ml/min; Estimated Glomerular Filt Rate > 60; Glucose 297 mg/dL (75-110); Potassium 4.7 mmol/L (3.4-5.0); Sodium 133 mmol/L (137-145)
[2020-07-16 08:00] VITALS: PULSE 80
[2020-07-16] MEDS: ASPIRIN 81 MG CHEWABLE TABLET PO (08:40)
[2020-07-16] MEDS: predniSONE 20 MG TABLET 60 MG PO (08:40)
[2020-07-16] MEDS: MECLIZINE HCL 6.25 MG TABLET PO ×2 (08:41→12:45)
[2020-07-16] MEDS: CLOPIDOGREL BISULFATE 75 MG TABLET PO (08:41)
[2020-07-16] MEDS: lisinopriL 20 MG TABLET PO (08:41)
[2020-07-16] MEDS: PRAVASTATIN SODIUM 20 MG TABLET PO (08:41)
[2020-07-16] MEDS: INSULIN ASPART (*BKC) 100 UNITS/ML SUB-Q ×2 (08:42→12:44)
[2020-07-16 09:43] LABS: Glucose Point of Care 292 (65-105)
[2020-07-16 11:22] LABS: Alanine Aminotransferase 25 U/L (4-50); Albumin Level 3.6 g/dL (3.5-5.1); Alkaline Phosphatase 83 U/L (38-126); Aspartate Amino Transferase 19 U/L (17-59); Bilirubin,Total 0.4 mg/dL (0.2-1.3); Cholesterol 149 mg/dL (0-200); HDL Direct 54 mg/dL; Triglycerides 87 mg/dL (<150)
[2020-07-16 11:33] LABS: LDL Cholesterol Direct 85 mg/dL
--- NOTE | 2020-07-16 11:56 | WPDNEUROPN ---
Progress Note: A&P Assessment and Plan (1) Sudden-onset sensorineural hearing loss: Code(s): H91.20 - Sudden idiopathic hearing loss, unspecified ear Status: Acute (2) Dizziness: Code(s): R42 - Dizziness and giddiness Status: Acute (3) HTN (hypertension): Code(s): I10 - Essential (primary) hypertension Status: Acute Time Spent With Patient Time: at present he is stable will continue the treatment as such and will be followed in the office subsequent to discharge Review of Systems Review of Systems: All systems reviewed & are unremarkable except as noted in HPI and below Exam Narrative: Exam Narrative: examination today reveals him to be awake alert cooperative in no obvious acute distress normocephalic with no cranial bruit ear nose throat examination normal neck supple heart regular lungs clear abdomen soft neurologically normal mental status normal speech pupils round regular feels the vision full extraocular muscle full face symmetrical tongue midline motor examination reveals no drift to 1 side or other side tone normal reflexes symmetrical plantars downgoing Objective Data Vital Signs Vital Signs: Vital Signs - 24 hr 07/15/20 12:00 07/15/20 12:30 07/15/20 14:00 Temperature 36.5 C Pulse Rate 79 75 Respiratory Rate 20 Blood Pressure 142/90 H 150/89 H Pulse Oximetry 100 07/15/20 20:00 07/15/20 22:00 07/16/20 00:00 Temperature 36.8 C Pulse Rate 79 83 93 Respiratory Rate 20 Blood Pressure 163/90 H Pulse Oximetry 99 07/16/20 04:00 07/16/20 06:00 07/16/20 08:00 Temperature 36.8 C Pulse Rate 88 87 80 Respiratory Rate 18 Blood Pressure 124/83 Pulse Oximetry 100 Intake/Output Intake/Output: Intake & Output 07/13/20 07/14/20 07/15/20 07/16/20 23:59 23:59 23:59 23:59 Intake Total 940 904 Balance 940 904 Meds/Results Medications: Active Medications Generic Name Dose Route Start Last Admin Trade Name Freq PRN Reason Stop Dose Admin Acetaminophen 650 mg 07/15/20 06:00 Tylenol Tablet PO Q4H PRN Mild Pain (1-3) or Fever Hydrocodone Bitart/Acetaminophen 1 tab 07/15/20 06:00 [place] 5-325 Mg PO Q4H PRN Pain Rated 4-6 Aspirin 81 mg 07/16/20 08:00 07/16/20 08:40 Aspirin Chewable PO 81 mg DAILY@0800 TRINY Administration Clopidogrel Bisulfate 75 mg 07/15/20 17:25 07/16/20 08:41 Plavix PO 75 mg QAM TRINY Administration Dextrose 12.5 gm 07/15/20 23:17 Dextrose 50% Syringe IV PUSH PRN PRN Hypoglycemia Protocol Glucagon 1 mg 07/15/20 23:17 Glucagon For Inj IM PRN PRN Hypoglycemia Protocol Glucose 15 gm 07/15/20 23:17 Glutose 15 PO PRN PRN Hypoglycemia Protocol Dextrose 1,000 mls @ 100 mls/hr 07/15/20 23:17 Dextrose 5% 1,000 Ml IVPB PRN PRN Hypoglycemia Protocol Insulin Aspart 3 - 6 units 07/16/20 08:00 07/16/20 08:42 Novolog SUB-Q 4 units TIDWM TRINY Administration Protocol Levothyroxine Sodium 75 mcg 07/15/20 06:30 07/16/20 05:33 Synthroid PO 75 mcg DAILY@0630 TRINY Administration Lisinopril 20 mg 07/15/20 09:00 07/16/20 08:41 Prinivil PO 20 mg QAM TRINY Administration Meclizine HCl 6.25 mg 07/15/20 17:00 07/16/20 08:41 Antivert PO 6.25 mg TID TRINY Administration Morphine Sulfate 4 mg 07/15/20 06:00 Morphine Sulfate Inj (*Crx) IV PUSH Q2H PRN Pain Rated 7-10 Pravastatin Sodium 20 mg 07/15/20 09:00 07/16/20 08:41 Pravastatin Sodium PO 20 mg DAILY TRINY Administration Prednisone 60 mg 07/15/20 17:00 07/16/20 08:40 Prednisone PO 60 mg DAILY@0800 TRINY Administration Promethazine HCl 12.5 mg 07/15/20 06:00 07/15/20 07:50 Phenergan Inj IV PUSH 12.5 mg Q6H PRN Administration Nausea Radiology Results: ITS Impressions Chest X-Ray 07/15/20 06:41 IMPRESSION: No active cardiopulmonary disease
[2020-07-16 12:00] VITALS: PULSE 70
[2020-07-16] MEDS: HOME MEDICATION 18 EACH SUB-Q (12:04)
[2020-07-16 13:32] LABS: Glucose Point of Care 380 (65-105)
--- NOTE | 2020-07-16 14:02 | PM.DS ---
DS: Admitting Diagnosis Admitting Diagnosis Admitting Diagnosis: Stroke symptoms/hearing loss/dizziness DS: Discharge Diagnosis Discharge Diagnosis (1) Sudden-onset sensorineural hearing loss: Code(s): H91.20 - Sudden idiopathic hearing loss, unspecified ear Status: Acute Assessment and Plan: Rayo Hilario is a 54 year old male with history of type 1 diabetes yesterday patient woke with sudden onset of tinnitus, fullness in the left ear and sudden hearing loss in the ear, he complains of being dizzy the room is spinning, patient denies any associated symptoms runny nose cough congestion nausea or vomiting, patient had a CT scan of the head is negative for any acute injury similarly patient had MRI of the brain is also negative, patient was seen by neurologist and ordered CTA of the brain which showed 1. 0% stenosis of the left and right carotid bulbs relative to normal distal artery lumen diameter (NASCET criteria). 2. Isolated calcified atherosclerotic plaque along the mid petrous portion of the right internal carotid artery with a near occlusion stenosis. I discussed these results with neurologist he does not suspect hearing loss due to the total occlusion of right internal carotid artery however will start the patient on Plavix and continue aspirin to further evaluate will do cardiac echo. patient was also seen by ENT he suspect patient suffered from a sudden sensorineural hearing loss of his left ear and has started the patient on prednisone 60 mg for 10 days, I have started the patient low-dose of meclizine to help with his dizziness, will monitor his blood sugar, once clinically stable will have a PT OT evaluate the patient before discharging him home. (2) Vertigo: Code(s): R42 - Dizziness and giddiness Status: Acute Assessment and Plan: plan is above (3) Diabetes: Code(s): E11.9 - Type 2 diabetes mellitus without complications Status: Acute Assessment and Plan: will continue home regimen and monitor blood sugar DS: Summary Hospital Course Reason for hospitalization: Chief complaint: Stroke symptoms/hearing loss/dizziness Narrative: Rayo Hilario is a 54 year old male with history of type 1 diabetes yesterday patient woke with sudden onset of tinnitus, fullness in the left ear and sudden hearing loss in the ear, he complains of being dizzy the room is spinning, patient denies any associated symptoms runny nose cough congestion nausea or vomiting, patient had a CT scan of the head is negative for any acute injury similarly patient had MRI of the brain is also negative, patient was seen by neurologist and ordered CTA of the brain which showed 1. 0% stenosis of the left and right carotid bulbs relative to normal distal artery lumen diameter (NASCET criteria). 2. Isolated calcified atherosclerotic plaque along the mid petrous portion of the right internal carotid artery with a near occlusion stenosis. I discussed these results with neurologist he does not suspect hearing loss due to the total occlusion of right internal carotid artery however will start the patient on Plavix and continue aspirin to further evaluate will do cardiac echo. patient was also seen by ENT he suspect patient suffered from a sudden sensorineural hearing loss of his left ear and has started the patient on prednisone 60 mg for 10 days, I have started the patient low-dose of meclizine to help with his dizziness, will monitor his blood sugar, once clinically stable will have a PT OT evaluate the patient before discharging him home. Hospital Course: Rayo Hilario is a 54 year old male with history of type 1 diabetes yesterday patient woke with sudden onset of tinnitus, fullness in the left ear and sudden hearing loss in the ear, he complains of being dizzy the room is spinning, patient denies any associated symptoms runny nose cough congestion nausea or vomiting, patient had a CT scan of the head is negative
--- NOTE | 2020-07-16 14:30 | WPDNEUROPN ---
Progress Note: A&P Assessment and Plan (1) Sudden-onset sensorineural hearing loss: Code(s): H91.20 - Sudden idiopathic hearing loss, unspecified ear Status: Acute (2) Vertigo: Code(s): R42 - Dizziness and giddiness Status: Acute (3) Diabetes: Code(s): E11.9 - Type 2 diabetes mellitus without complications Status: Acute (4) Gastroesophageal reflux disease: Code(s): K21.9 - Gastro-esophageal reflux disease without esophagitis Status: Acute (5) Hypercholesterolemia: Code(s): E78.00 - Pure hypercholesterolemia, unspecified Status: Acute (6) HTN (hypertension): Code(s): I10 - Essential (primary) hypertension Status: Acute Additional Plan discussed in detail with the patient the finding of a right internal carotid artery stenosis rather calcification at the petrous part of the temporal bone in detail this is an incidental finding and patient felt comfortable all questions were answered he is going to see the primary care physician in the next couple of days and I will be happy to follow him as an outpatient I also told him he should not go back to work till his vertigo completely clears of and his hearing comes back and he should not be driving either Review of Systems Review of Systems: All systems reviewed & are unremarkable except as noted in HPI and below Exam Const: General: comfortable and no acute distress HENMT: General nose exam: Normal nares present Mouth: Yes moist mucous membranes Other: decreased hearing in the left ear Eyes: General: appearance normal, both eyes and all related structures Other: no evidence of nystagmus Neck: Neck: supple and no JVD Resp: Effort & Inspection: normal respiratory effort Auscultation: clear to auscultation bilaterally Cardio: Rate: regular rate Rhythm: regular rhythm GI: Auscultation: normal bowel sounds Skin: General skin exam: normal color and no rashes or lesions noted Neuro: Other: patient's vertigo is much better and apart from hearing loss he does not have any neurological deficit he remains awake alert well oriented with normal cranial examination normal motor examination nonsmoking normal gait and station needing little assistance because of positional vertigo Extrem: General: normal to inspection Psych: Mental Status: mental status grossly normal Objective Data Vital Signs Vital Signs: Vital Signs - 24 hr 07/15/20 20:00 07/15/20 22:00 07/16/20 00:00 Temperature 36.8 C Pulse Rate 79 83 93 Respiratory Rate 20 Blood Pressure 163/90 H Pulse Oximetry 99 07/16/20 04:00 07/16/20 06:00 07/16/20 08:00 Temperature 36.8 C Pulse Rate 88 87 80 Respiratory Rate 18 Blood Pressure 124/83 Pulse Oximetry 100 07/16/20 12:00 Temperature Pulse Rate 70 Respiratory Rate Blood Pressure Pulse Oximetry Intake/Output Intake/Output: Intake & Output 07/13/20 07/14/20 07/15/20 07/16/20 23:59 23:59 23:59 23:59 Intake Total 940 1544 Output Total 350 Balance 940 1194 Meds/Results Medications: Active Medications Generic Name Dose Route Start Last Admin Trade Name Freq PRN Reason Stop Dose Admin Acetaminophen 650 mg 07/15/20 06:00 Tylenol Tablet PO Q4H PRN Mild Pain (1-3) or Fever Hydrocodone Bitart/Acetaminophen 1 tab 07/15/20 06:00 [place] 5-325 Mg PO Q4H PRN Pain Rated 4-6 Aspirin 81 mg 07/16/20 08:00 07/16/20 08:40 Aspirin Chewable PO 81 mg DAILY@0800 TRINY Administration Clopidogrel Bisulfate 75 mg 07/15/20 17:25 07/16/20 08:41 Plavix PO 75 mg QAM TRINY Administration Dextrose 12.5 gm 07/15/20 23:17 Dextrose 50% Syringe IV PUSH PRN PRN Hypoglycemia Protocol Glucagon 1 mg 07/15/20 23:17 Glucagon For Inj IM PRN PRN Hypoglycemia Protocol Glucose 15 gm 07/15/20 23:17 Glutose 15 PO PRN PRN Hypoglycemia Protocol Dextrose
== END 2020-07-16 15:00 | disposition home or self-care (01) ==
LOC: ANHED 06:12 → ANH3MEDSUR 07-16 13:53
PROVIDERS: Admitting Provider Internal Medicine; Emergency Provider Emergency Medicine; PCP Physician Assistant; Visit Provider Family Medicine
DX: H91.22 Sudden idiopathic hearing loss, left ear (principal); R42 Dizziness and giddiness; H93.12 Tinnitus, left ear; I65.21 Occlusion and stenosis of right carotid artery; I10 Essential (primary) hypertension; E11.9 Type 2 diabetes mellitus without complications; E03.9 Hypothyroidism, unspecified; E78.00 Pure hypercholesterolemia, unspecified; K21.9 Gastro-esophageal reflux disease without esophagitis; M19.90 Unspecified osteoarthritis, unspecified site; Z87.891 Personal history of nicotine dependence; Z79.4 Long term (current) use of insulin
CPT/HCPCS: 36415; 70450; 70496; 70498; 70553; 71045; 80048; 80061; 80076; 82948; 83735; 84484; 85025; 85027; 85610; 85730; 93005; 93306; 96374; 99285; A9270; A9577; G0378; J1815; J2550; J7512; Q9967

== ENCOUNTER 2020-08-06 08:44 | Outpatient (CLI) | payer BC, SELFPAY | END 2020-08-06 08:45 | disposition home or self-care (01) | PROVIDERS: PCP Physician Assistant; Visit Provider Otolaryngology | DX: H90.3 Sensorineural hearing loss, bilateral (principal); R42 Dizziness and giddiness | CPT/HCPCS: 92557; 92567 ==

== ENCOUNTER 2020-10-23 12:30 | Outpatient (RCR) | payer BC, SELFPAY ==
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
--- NOTE | 2020-10-07 12:42 | PTOPEVAL ---
PHYSICAL THERAPY RE-EVALUATION and UPDATED PLAN OF CARE Thank you for referring Rayo Hilario to [facility].? Re-evaluation performed this date still shows balance deficits with eyes closed when on foam and narrow base of support. Overall - gains have been made in PT. Rayo is scheduled to be seen for physical therapy? 2x/week for 3 weeks. Please review, sign, date and return this plan of care GABRIEL. I agree with and certify that the following plan of care is medically necessary. Referring Physician Date Admitting Provider: Attending Provider: Mirza Herrera MD Referring Provider: *PT Outpatient Evaluation Start: 09/11/20 14:39 Freq: Status: Active Protocol: Document 10/07/20 11:06 TERESA (Rec: 10/07/20 12:05 [email or web address] [id number]) Therapy Assessment Status Assessment Status Assessment Status Re-evaluation Evaluation Information Problem Subjective Information Rayo reports that he still Query Text:As Reported By Patient/ has difficulty with his Family balance when turning to the L, when looking up, and less so when looking down. When walking down the aisle of the grocery store - isn't too bad. Stopping quickly when walking is still difficult. Still nervous about cat getting too close to his feet. Pain Assessment Timing of Pain Assessment Timing of Pain Assessment Assessment Self Report Self Report Pain Level 0 Pain Score Pain Score 0: Self Report Vestibular Evaluation Vestibular Medical Information Standardized Tests Dizziness Handicap Inventory Standardized Test Scores (Number 0-100) 46 Vestibular Balance Standing Balance: Firm Surface Eyes Open WNL for 30 Seconds Standing Balance: Firm Surface Eyes WNL Closed for 30 Seconds Standing Balance: Foam Surface Eyes Open WNL for 30 Seconds Standing Balance: Foam Surface Eyes Loss of Balance Closed for 30 Seconds Romberg: Eyes Open 30 Romberg: Eyes Closed 15 Tandem Stance: Eyes Open - Right Foot 32 Forward Tandem Stance: Eyes Open - Left Foot 60 Forward Tandem Stance: Eyes Closed - Right Foot 2 Forward Tandem Stance: Eyes Closed - Left Foot 8 Forward Vestibular Balance Comments Standing on foam with eyes closed - increased difficulty to stay still - increased fight to stay upright - but needed assist to prevent loss of balance
--- NOTE | 2020-10-23 17:08 | PTOPEVAL ---
PHYSICAL THERAPY DISCHARGE SUMMARY Thank you for referring Rayo Hilario to [facility] [place].? Rayo has made increased gains with balance - still has difficulty with eyes closed when on foam and in tandem standing. He has been seen x 9 visits. He is consistent with his HEP which he is to continue with and to call if he has future questions. I agree with Rayo's discharge from PT. 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 Continues to perform HEP on a regular basis . Pain Assessment Timing of Pain Assessment Timing of Pain Assessment Assessment Self Report Self Report Pain Level 0 Pain Score Pain Score 0: Self Report Vestibular Evaluation Vestibular Medical Information Standardized Tests Dizziness Handicap Inventory Standardized Test Scores (Number 0-100) 48 Vestibular Balance Tandem Stance: Eyes Closed - Right Foot 5 Forward Tandem Stance: Eyes Closed - Left Foot 5 Forward Vestibular Balance Comments standing on foam - eyes closed - 24 sec - before increase loss of balance, increase of sway before loss of balance PT Clinical Summary Clinical Summary Protocol: PTEVCODE PT Clinical Summary Rayo continues to make balance gains but still has difficulty on foam with eyes closed and in tandem standing with eyes open and with eyes closed. He continues to incorporate new strategies given to him in regards to balance and stability with movement. He is at end point with insurance coverage for visits. He has been very
== END 2020-10-24 09:04 | disposition home or self-care (01) ==
LOC: ANHPT 12:30
PROVIDERS: PCP Physician Assistant; Visit Provider Otolaryngology
DX: R42 Dizziness and giddiness (principal)
CPT/HCPCS: 97110; 97162

== ENCOUNTER 2020-12-16 15:43 | Outpatient (CLI) | payer BC, SELFPAY | END 2020-12-16 15:44 | disposition home or self-care (01) | LOC: ANHCOVIDVC 15:43 | PROVIDERS: PCP Physician Assistant | DX: Z23 Encounter for immunization (principal) | CPT/HCPCS: 0001A; 91300 ==

== ENCOUNTER 2021-01-06 15:43 | Outpatient (CLI) | payer BC, SELFPAY | END 2021-01-06 15:44 | disposition home or self-care (01) | LOC: ANHCOVIDVC 15:44 | PROVIDERS: PCP Physician Assistant | DX: Z23 Encounter for immunization (principal) | CPT/HCPCS: 0002A; 91300 ==

== ENCOUNTER 2023-03-28 14:26 | Outpatient (CLI) | payer BC, SELFPAY ==
--- NOTE | ~2023-03-28 | CT_ITS ---
Noncontrast CT scan of the right foot CLINICAL HISTORY: Osteomyelitis TECHNIQUE: Axial noncontrast imaging of the right foot. Sagittal and coronal reformatted images were constructed. Dose reduction technique was used on this scan by utilizing automated exposure control a nd iterative reconstruction technique. The dose-length product (DLP) was 330.36 mGy-cm. Findings: No fracture or subluxation identified. There is no bony destructive change or periosteal re action to suggest osteomyelitis. Joint spaces are preserved. No gross soft tissue abnormality seen. No mass lesion or fluid collection identified. IMPRESSION: No significant abnormality identified. Consider MRI and/or 3 phase bone scan to further evaluate for osteomyelitis, as clinically indicated. Reviewed, dictated and finalized at [facility].
== END 2023-03-28 14:27 | disposition home or self-care (01) ==
PROVIDERS: PCP Family Medicine; Visit Provider Podiatrist Foot & Ankle Surgery
DX: M86.271 Subacute osteomyelitis, right ankle and foot (principal)
CPT/HCPCS: 73700

== ENCOUNTER 2024-03-26 13:20 | Outpatient (CLI) | payer BC, SELFPAY | END 2024-03-26 13:21 | disposition home or self-care (01) | LOC: ANHBWCAUD 13:20 | PROVIDERS: PCP Family Medicine; Visit Provider Otolaryngology | DX: H90.3 Sensorineural hearing loss, bilateral (principal) | CPT/HCPCS: 92553; 92555; 92567 ==

== ENCOUNTER 2024-05-22 12:47 | Outpatient (CLI) | payer BC, SELFPAY | END 2024-05-22 12:48 | disposition home or self-care (01) | LOC: ANHBWCAUD 12:48 | PROVIDERS: PCP Family Medicine; Visit Provider Otolaryngology | DX: H90.3 Sensorineural hearing loss, bilateral (principal) | CPT/HCPCS: 92557; 92567 ==